=== PATIENT | female | born 1935 | race Caucasian/White ===

== ENCOUNTER → 2020-07-29 | Outpatient (CLI) | payer OTHER ==
[2016-09-22 15:15] VITALS: BP 138/76
[~2020-07-29] MED LIST: ASPI-630 PO; ASPI325T8 PO; CELE200C PO; CETI10CA PO; FLUT9.9S NS; GLUC1CAP48 PO; LISI-334 PO; MULT-460 PO; PRAV20TA2 PO; SULF-143 PO
--- NOTE | 2020-07-29 08:36 | RAD ---
ABDOMEN LTD History: Elevated transaminase Comparison: None. Findings: Multiple sonographic images of the abdomen are submitted. There is a hypoechoic lesion in the region of the midline of the pancreas about 2.9 x 2 x 1.9 cm with associated mild vascularity on color Doppler imaging. There are scattered nonspecific small echogenic foci of the liver. Right lobe of the liver measures about 14 cm longitudinal. Common bile duct is within normal limits given patient's age, measures about 0.6 cm. There is cholelithiasis including a large gallstone about 2.5 cm. There is pericholecystic fluid. Gallbladder wall is thickened about 0.5 cm. Right kidney measured 9.3 x 4.4 x 3.8 cm, no hydronephrosis. Inferior vena cava is poorly seen due to bowel gas. Impression: 1. There is a hypoechoic masslike lesion of the midline of the pancreas for which CT evaluation recommended. There are also some nonspecific echogenic foci of the liver. 2. There is cholelithiasis including a large gallstone about 2.5 cm. There is also gallbladder wall thickening and pericholecystic fluid suggestive of cholecystitis in the appropriate clinical setting although reportedly there is no right upper quadrant pain. Electronically signed by: Danny Cutler MD (07/29/2020 8:33 AM) [id number]
== END | disposition home or self-care (01) ==
LOC: US 07:35
PROVIDERS: ATTEND Family Medicine
DX: K80.20 Calculus of gallbladder without cholecystitis without obstruction (principal); R74.0 Nonspecific elevation of levels of transaminase and lactic acid dehydrogenase [LDH]
CPT/HCPCS: 76705

== ENCOUNTER → 2020-08-05 | Outpatient (CLI) | payer MEDICAID, MEDICARE, OTHER ==
[2016-09-22 15:15] VITALS: BP 138/76
[~2020-08-05] MED LIST changes: +IOHEXOL 240 MG/ML 50ML VIAL. PO ONE; +IOHEXOL 300 MG/ML 100ML VIAL. IV ONE
--- NOTE | 2020-08-05 16:35 | KCIC ---
Examination: CT ABD PELV W/ORAL IV CONTRAST History: Reason: Pancreatic lesion, gall stone seen on recent US. Abnormal bloodwork / Spl. Instructions: 100mL Omni 300. A/P scanned at 3mm. / History: Lt. breast CA, total hysterectomy. Comparison/Correlation: 07/29/2020 Limited abdominal ultrasound exam Findings: Axial images of the abdomen and pelvis were obtained following IV and oral contrast. Because lung base. Small left pleural effusion is present. Liver, spleen, pancreas, and adrenal glands are unremarkable. Calcific densities involving the right hepatic dome noted. Small hiatal hernia is present. Absence of left breast noted. Proximal duodenal diverticulum is small in size. There are 2 calculi identified involving the gallbladder. One of these measures up to 2.7 cm diameter. Right collecting system is unremarkable. Left renal cyst measuring 1.2 cm x 0.8 cm is present with no suspicious characteristics. No left collecting system obstruction. Appendix is normal. No extraluminal gas. No obstruction. Moderate quantity of stool in the colon is present. Diverticulosis is present. Urinary bladder is unremarkable. Exaggerated lordosis of the lumbar spine is present. Disc space narrowing from L1 to L3 is present. At L5-S1 disc space narrowing is present. Moderate disc space narrowing at L3-4 is present. Vacuum phenomenon noted along the spine at multiple normals. Facet joint degenerative changes of the low left lumbar spine noted. Sacroiliac joint vacuum phenomenon is present. Impression: Cholelithiasis. No inflammatory findings or biliary dilatation. Small hiatal hernia. Small left pleural effusion. No pancreatic mass. The finding questioned on ultrasound exam probably represented a fluid-filled duodenal diverticulum which abuts the pancreatic head. PQRS Compliance Statement: One or more of the following individualized dose reduction techniques were utilized for this examination: 1. Automated exposure control 2. Adjustment of the mA and/or kV according to patient size 3. Use of iterative reconstruction technique Electronically signed by: Gt Garrett MD (08/05/2020 4:32 PM) [id number]
== END ==
LOC: KCIC CT 12:38
PROVIDERS: ATTEND Family Medicine
DX: K80.20 Calculus of gallbladder without cholecystitis without obstruction (principal); J90 Pleural effusion, not elsewhere classified; K44.9 Diaphragmatic hernia without obstruction or gangrene
CPT/HCPCS: 74177; Q9966; Q9967